=== PATIENT | male | born 1990 | race Caucasian/White ===

== ENCOUNTER 2024-01-02 19:44 | Emergency (ER) | payer BC, SELFPAY ==
--- NOTE | ~2024-01-02 | US_ITS ---
EXAMINATION: US venous doppler LE RT DATE: 01/02/2024 20:55 INDICATION: Right lower limb pain TECHNIQUE: Grayscale ultrasound images without and with compression and Doppler ultrasound images of the right lower extremity veins were obtained. COMPARISON: None. FINDINGS: The visualized portions of right common femoral vein, profunda (deep) femoral vein, femoral vein, pop liteal vein, peroneal trunk, posterior tibial veins, peroneal veins and greater saphenous vein outflo w are patent. IMPRESSION: 1. No deep venous thrombosis in the right lower limb. Reviewed, dictated and finalized at location A.
--- NOTE | ~2024-01-02 | XR_ITS ---
EXAMINATION: XR knee RT min 4V DATE: 01/02/2024 20:49 INDICATION: Right knee pain after walking a long distance TECHNIQUE: Anteroposterior, 2 oblique and crosstable lateral views of the right knee were obtained COMPARISON: None. FINDINGS: Alignment is normal. No fracture. Joint spaces appear normal on nonweightbearing imaging with no ost eophytosis. No joint effusion. Soft tissues are unremarkable. IMPRESSION: 1. Negative right knee radiographs. Reviewed, dictated and finalized at location A.
--- NOTE | 2024-01-02 19:46 | ED.GENADULT ---
HPI - General Adult General Chief complaint: Extremity Injury, Lower Stated complaint: right knee pain Time Seen by Provider: 01/02/24 19:46 Pt is 33-year-old male presents to the ER with complaints of intermittent R posterior thigh, knee, and calf pain. He walked on a treadmill for four hours on Saturday and his pain started on Saturday. Pt reports he has tried Tylenol and Ibuprofen at home without much relief. Pt denies RLE redness, swelling, or pain with stretching/touch. He says the pain is shooting when he straightens his leg and puts pressure on his R foot. Related Data Allergies Allergy/AdvReac Type Severity Reaction Status Date / Time No Known Allergies Allergy Unverified 06/24/18 16:19 Review of Systems Review of Systems: All systems reviewed & are unremarkable except as noted in HPI and below Exam Narrative: GENERAL: Well appearing, well-nourished, non-toxic, in no acute distress. RESPIRATORY: Airway patent, respirations nonlabored. Clear to auscultation bilaterally, no rales, rhonchi, wheezing. CARDIOVASCULAR: Regular rate and rhythm without murmurs, rubs, or gallops. Peripheral pulses 2+ and equal bilaterally. MUSCULOSKELETAL: Moves all extremities. Strength/ROM intact without gross deformities or TTP. No edema. No calf tenderness. SKIN: Warm, dry, normal color. No rashes. NEURO: A&O X3. Speech clear. Cranial nerves II-XII grossly intact. Steady gait. No ataxic movements. Course Vital Signs Vital signs: Vital Signs Pulse Rate 80 01/02/24 19:48 Respiratory Rate 14 01/02/24 19:48 Blood Pressure 133/87 01/02/24 19:48 Pulse Oximetry 96 01/02/24 19:48 Oxygen Delivery Room Air 01/02/24 19:48 Temperature 37.1 C 01/02/24 19:53 Pulse Rate 80 01/02/24 19:48 Respiratory Rate 14 01/02/24 19:48 Blood Pressure 133/87 01/02/24 19:48 Pulse Oximetry 96 01/02/24 19:48 Oxygen Delivery Room Air 01/02/24 19:48 Medical Decision Making MDM Narrative Medical decision making narrative: Pt is 33-year-old male presents to the ER with complaints of intermittent R posterior thigh, knee, and calf pain. He walked on a treadmill for four hours on Saturday and his pain started on Saturday. Pt reports he has tried Tylenol and Ibuprofen at home without much relief. He endorses the pain radiates along the backside of his R leg and worsens with straightening and pressure. In the ER, pt's exam is unremarkable. No swelling or redness noticed on RLE. Meniscus and ACL/MCL tests were negative. Pt was given Tylenol during his ER visit, which he said helped minimally with his pain relief. A ultrasound of pt's RLE was performed and was negative for a blood clot. An x-ray of pt's RLE was also performed and showed no deformities or abnormalities. Pt verbalized understanding of imaging results. Advised to go home with an JAZLYN wrap. Also advised to take Tylenol, Ibuprofen, and ice affected areas as needed. Pt should follow-up with PCP in five days if pain is not relieved with DC plan. Pt verbalized understanding of DC plan. Differential Diagnosis Differential Diagnosis: RLE blood clot, RLE muscle strain, RLE tendonitis Vital Signs Vital Signs: Vital Signs Pulse Rate 80 01/02/24 19:48 Respiratory Rate 14 01/02/24 19:48 Blood Pressure 133/87 01/02/24 19:48 Pulse Oximetry 96 01/02/24 19:48 Oxygen Delivery Room Air 01/02/24 19:48 Temperature 37.1 C 01/02/24 19:53 Pulse Rate 80 01/02/24 19:48 Respiratory Rate 14 01/02/24 19:48 Blood Pressure 133/87 01/02/24 19:48 Pulse Oximetry 96 01/02/24 19:48 Oxygen Delivery Room Air 01/02/24 19:48 Imaging Data Attestation: I personally reviewed and interpreted this imaging study as follows: My impression: Impressions Knee X-Ray 01/02/24 21:28 IMPRESSION: 1. Negative right knee radiographs. Venous Doppler Study 01/02/24 21:35 IMPRESSION: 1. No deep venous thrombosis in the right [place]
[2024-01-02 19:48] VITALS: BP 133/87; PULSE 80; RESP 14; O2SAT 96
[2024-01-02 19:53] VITALS: TEMP 37.1
[2024-01-02] MEDS: ACETAMINOPHEN 500 MG TABLET 1000 MG PO (20:37)
[2024-01-02 22:42] VITALS: BP 126/84; PULSE 74; RESP 16; O2SAT 99
== END 2024-01-02 22:43 | disposition home or self-care (01) ==
PROVIDERS: Emergency Provider Registered Nurse
DX: S86.911A Strain of unspecified muscle(s) and tendon(s) at lower leg level, right leg, initial encounter (principal); X50.3XXA Overexertion from repetitive movements, initial encounter
CPT/HCPCS: 73564; 93971; 99284; A9270

== ENCOUNTER 2024-01-16 11:24 | Emergency (ER) | payer BC, SELFPAY ==
[2024-01-16 11:40] VITALS: BP 111/90; PULSE 95; RESP 16; TEMP 35.9; O2SAT 99
--- NOTE | 2024-01-16 11:47 | ED.EXTPRO ---
HPI - Extremity Problem General Chief complaint: Extremity Problem,Nontraumatic Stated complaint: R LEG PAIN Time Seen by Provider: 01/16/24 11:47 Source: patient Mode of arrival: ambulatory Limitations: no limitations History of Present Illness HPI Narrative: 33-year-old male presents with complaint of pain to right leg for approximately 2 weeks. Patient states that he works from home . But 1 of the new walking treadmills to use while working at his desk. States he walked on treadmill the 1st day for 4 hours. Does not normally exercise. Woke up the next morning with severe pain to right lower extremity. Went to the ER and had x-rays completed was told no fractures. Also had ultrasound done to rule out blood clot. Ultrasound was normal. Was told to take ibuprofen for leg pain. Went to urgent care about 1 week ago. Was told pain was related to sciatica. Patient given muscle relaxant and steroids which she states helped only a little bit. Continues to have right leg pain. Difficult to get comfortable due to pain. Cannot stand for long period of time due to pain. Has appointment with her primary care physician next week. Is out of muscle relaxant. Patient ambulatory with steady gait, no limping. All systems reviewed and negative except as noted above. Related Data Home Medications Medication Instructions Recorded Confirmed acetaminophen 500 mg tablet 1,000 mg PO Q6H PRN 01/17/24 (Tylenol Extra Strength) cetirizine 10 mg tablet 10 mg PO DAILY PRN 01/17/24 multivitamin 1 tablet PO DAILY 01/17/24 Allergies Allergy/AdvReac Type Severity Reaction Status Date / Time No Known Allergies Allergy Verified 01/16/24 11:47 Review of Systems Review of Systems: CONSTITUTIONAL: Denies fever, chills, or sweats. EYES: Denies visual changes, redness, or discharge. ENT: Denies rhinorrhea, congestion, sore throat, or otalgia. CARDIOVASCULAR: Denies chest pain, palpitations, or edema. RESPIRATORY: Denies cough or dyspnea. GASTROINTESTINAL: Denies abdominal pain, nausea, vomiting, or diarrhea. GENITOURINARY: Denies dysuria or hematuria. SKIN: Denies rash or itching. MUSCULOSKELETAL: Denies back pain, joint pain, or myalgia. Reports right leg pain NEUROLOGIC: Denies headache, numbness, or weakness. PSYCHIATRIC: Denies anxiety or depression. All other systems reviewed are negative, except as documented in HPI. [facility] Past Medical History Medical History (Updated 01/17/24 @ 10:35 by Rusty Miller DO) Right sided sciatica Family History Family History (Updated 01/17/24 @ 09:41 by Sesar Corrales CMA) Grandparent Alcohol abuse Grandparent Hypertension Social History Social History (Updated 01/17/24 @ 09:38 by Sesar Corrales CMA) Smoking status: Never smoker Alcohol intake: never Substance use: never Substance use type: does not use Do You Feel Safe in your Home?: Yes Lack of Transportation: No Lack of Food: Never True Current Housing: I Have Housing Concerned About Future Housing: No Difficulty Paying Gas/Electric Bills: No Difficulty Paying for Meds: No Currently Unemployed: No Education: Bachelor's Degree Difficulty w/ Childcare or Family Care: No Comments At time of signature, agree with nursing past medical, surgical, social and family history. There is no relevant family history pertinent to the presenting complaint. Exam Narrative: GENERAL: This is a well-nourished, well-developed patient, in no apparent distress. HEAD: normocephalic, atraumatic. EYES: PERRL. Sclera clear/white. Vision is grossly intact. EARS: External ears normal, auditory canals clear and without drainage, TMs normal without perforation. Hearing grossly intact. NOSE: External nose normal with no obvious nasal discharge, nares without redness, no rhinorrhea. THROAT: Mucous membranes moist, posterior pharynx clear. NECK: Neck supple, non-tender without lymphadenopathy, masses or thyromegal
== END 2024-01-16 12:15 | disposition home or self-care (01) ==
PROVIDERS: Emergency Provider Nurse Practitioner Family
DX: M54.31 Sciatica, right side (principal); S86.911A Strain of unspecified muscle(s) and tendon(s) at lower leg level, right leg, initial encounter; X50.3XXA Overexertion from repetitive movements, initial encounter; Y93.A1 Activity, exercise machines primarily for cardiorespiratory conditioning
CPT/HCPCS: 99213; G0463

== ENCOUNTER 2024-03-10 12:10 | Outpatient (CLI) | payer BC, SELFPAY ==
--- NOTE | ~2024-03-10 | XR_ITS ---
XR knee RT min 4V 03/10/2024 12:40 Indication: Right knee pain Procedure: 4 views right knee Comparison: 01/02/2024 Findings: No fracture, subluxation or dislocation. No significant joint effusion. No foreign bodies. No joint space narrowing. Impression: 1: No significant bone or joint abnormality. Reviewed, dictated and finalized at location B. Impression: 1: No significant bone or joint abnormality.
== END 2024-03-10 12:11 | disposition home or self-care (01) ==
LOC: MICIMG 12:12
PROVIDERS: PCP Family Medicine; Visit Provider Family Medicine
DX: M25.561 Pain in right knee (principal)
CPT/HCPCS: 73564

== ENCOUNTER 2025-01-15 09:58 | Emergency (ER) | payer BC, SELFPAY ==
[2025-01-15 10:05] VITALS: BP 117/83; PULSE 92; RESP 18; TEMP 36.8; O2SAT 98
--- NOTE | 2025-01-15 10:21 | ED.URI ---
HPI - URI/Sore Throat General Chief Complaint: Upper Respiratory Infection Stated Complaint: FEVER/SORE THROAT Time Seen by Provider: 01/15/25 10:21 Source: patient Mode of arrival: ambulatory Limitations: no limitations History of Present Illness HPI Narrative: 34 yo M presents with c/o L sided sore throat, fatigue, low grade fever, nausea for 2 days. Vomited last night. has had diarrhea but not sure if related. No congestion or cough. Not eating due to pain with swallowing. Able to drink. All systems reviewed and negative except as noted above. Related Data Home Medications ?Medication ?Instructions ?Recorded ?Confirmed ?Last Taken ?Type No Home Medications 01/15/25 01/15/25 Unknown History Allergies Allergy/AdvReac Type Severity Reaction Status Date / Time No Known Allergies Allergy Verified 01/15/25 10:20 [facility] Past Medical History Medical History Right sided sciatica Family History Family History Grandparent Alcohol abuse Grandparent Hypertension Social History Social History Smoking status: Never smoker Alcohol intake: never Substance use: never Substance use type: does not use Do You Feel Safe in your Home?: Yes Lack of Transportation: No Lack of Food: Never True Current Housing: I Have Housing Concerned About Future Housing: No Difficulty Paying Gas/Electric Bills: No Difficulty Paying for Meds: No Currently Unemployed: No Education: Bachelor's Degree Difficulty w/ Childcare or Family Care: No Comments At time of signature, agree with nursing past medical, surgical, social and family history. There is no relevant family history pertinent to the presenting complaint. Exam Narrative: GENERAL: This is a well-nourished, well-developed patient, in no apparent distress. HEAD: normocephalic, atraumatic. EYES: PERRL. Sclera clear/white. Vision is grossly intact. EARS: External ears normal, auditory canals clear and without drainage, TMs normal without perforation. Hearing grossly intact. NOSE: External nose normal with no obvious nasal discharge, nares without redness, no rhinorrhea. THROAT: Mucous membranes moist,tonsil 3+ L side only with exudates. mild hot potato voice. swallowing oral secretions. NECK: Neck supple, non-tender without lymphadenopathy, masses or thyromegaly. CARDIOVASCULAR: Regular rate and rhythm without murmurs, gallops, or rubs. RESPIRATORY: Clear to auscultation. Breath sounds equal bilaterally. No wheezes, rales, or rhonchi. SKIN: warm, Dry, intact with no suspicious lesions or rash, good texture and turgor. NEURO: awake, alert, and oriented to person, place and time. There were no obvious focal neurologic abnormalities. EXTREMITIES: No joint tenderness, effusion, or edema noted. Course Course Level of Care: Express Care Visit Vital Signs Vital signs: Vital Signs Temperature 36.8 C 01/15/25 10:05 Pulse Rate 92 01/15/25 10:05 Respiratory Rate 18 01/15/25 10:05 Blood Pressure 117/83 01/15/25 10:05 Pulse Oximetry 98 01/15/25 10:05 Oxygen Delivery Room Air 01/15/25 10:05 Temperature 36.8 C 01/15/25 10:05 Pulse Rate 92 01/15/25 10:05 Respiratory Rate 18 01/15/25 10:05 Blood Pressure 117/83 01/15/25 10:05 Pulse Oximetry 98 01/15/25 10:05 Oxygen Delivery Room Air 01/15/25 10:05 reviewed Transfer Transfered to: [place] Transportation: Other (private vehicle) Transfer rationale: transferring to [facility] to rule out peritonsillar abscess Accepting physician: Yas SOLOMON MDM - URI/Sore Throat MDM Narrative Medical decision making narrative: L sided tonsil 3+, neg rapid strep. transferring to ER to rule out abscess Lab Data Labs: Lab Results 01/15/25 01/15/25 Range/Units 10:27 10:32 POC Influenza A Ag Pending POC Influenza B Ag Pending POC SARS CoV-2 Ag Pending POC Grp A Strep Screen Negative (Negative) Discharge Plan Discharge Clinical Impression: Abscess, peritonsillar Patient Disposition: Acute Care Hospital Condition: Stable Patient Language: Polish Prescriptions: No Action No Home Medications Follow-up/Referrals: Rusty Miller DO [Primary Care Provider, [facility]] Time of Disposition: 10:35
[2025-01-15 10:28] LABS: EDSTREPNEGPOS1 Negative (Negative)
[2025-01-15 10:35] LABS: EDCOVIDSCREEN Negative (Negative); EDINFLUASCREEN Negative (Negative); EDINFLUBSCREEN Negative (Negative)
== END 2025-01-15 10:40 | disposition short-term general hospital (02) ==
PROVIDERS: Emergency Provider Nurse Practitioner Family; PCP Family Medicine
DX: J36 Peritonsillar abscess (principal); Z20.822 Contact with and (suspected) exposure to COVID-19
CPT/HCPCS: 87081; 87426; 87804; 87880; 99213; G0463

== ENCOUNTER 2025-01-15 10:57 | Emergency (ER) | payer BC, SELFPAY ==
--- NOTE | ~2025-01-15 | CT_ITS ---
EXAMINATION: CT soft tissue neck w con DATE: 01/15/2025 12:03 INDICATION: Rule out [employer]ER [employer] TECHNIQUE: Computed tomography (CT) of the neck was performed with intravenous contrast. The dose-length product was 538.44 mGy-cm. COMPARISON: None FINDINGS: Extensive prominence of the left palatine tonsil which is favored to be secondary to an infectious process. There is a 12 x 7 x 11 mm loculated fluid collection in the palatine tonsil which is favored to represent a palatine tonsillar abscess. There is edema extending caudally from the left palatine to nsil into the left valleculae and left piriform sinus. Parotid glands, submandibular glands are unremarkable. Thyroid gland is unremarkable. Tongue is unremarkable. Dental hardware is present with surrounding artifact which slightly limits evaluation. Bone mineralization is within normal limits. Adenoid tissues unremarkable. No significant degenerative change in the cervical spine. Visualized cranial contents are unremarkable. There are a few nonenlarged and borderline enlarged lymph nodes scattered throughout the soft tissues of the neck. IMPRESSION: 1. Extensive prominence of the left palatine tonsil with surrounding edema which is favored to be secondary to an infectious process. Other etiologies are possible but are felt to be less likely. There is a 12 x 7 x 11 mm loculated fluid collection in the palatine tonsil which is favored to represent a palatine tonsillar abscess. Recommend follow-up to resolution. Reviewed, dictated and finalized at location Q. IMPRESSION: 1. Extensive prominence of the left palatine tonsil with surrounding edema whic h is favored to be secondary to an infectious process. Other etiologies are pos sible but are felt to be less likely. There is a 12 x 7 x 11 mm loculated fluid collection in the palatine tonsil which is favored to represent a palatine ton sillar abscess. Recommend follow-up to resolution.
--- OUTSIDE RECORDS SUMMARY | 2025-01-15 10:59 | XMS_ITS | Clinical Summary ---
Author Organization [address] Address [address] [place] [id number] Care Team Providers Care Performance Improvement Analyst Name Role Phone Unknown, Notinfile Primary Care Provider Unavail able Allergies No known active allergies Medications predniSONE (DELTASONE) 10 mg tabletIndication s:Acute right-sided low back pain with sciatica, sciatica laterality unspecified Take 3 tabs days 1 & 2, 2 tabs days 3 & 4, 1 tab days 5-7. 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 Gender Identity Male 01/10/2024 12:27 PM CDT Sexual Orientation Not on file Obstetrics History Last Filed Vital Signs Vital Sign Reading Time Taken Comments Blood Pressure 109/62 01/10/2024 2:05 PM CDT Pulse 68 01/10/2024 2:05 PM CDT Temperature 36.7 C (98 F) 01/10/2024 2:05 PM CDT Respiratory Rate 14 01/10/2024 2:05 PM CDT Oxygen Saturation 95% 01/10/2024 2:05 PM CDT Inhaled Oxygen Concentration - - Weight 102.1 kg (225 lb) 01/10/2024 2:05 PM CDT Height 177.8 cm (5' 10) 01/10/2024 2:05 PM CDT Body Mass Index 32.28 01/10/2024 2:05 PM CDT Plan of Treatment Health Maintenance Due Date Last Done Comments Depression Screening 1991 Hepatitis C Screening 1991 DTaP/Tdap/Td Vaccine (1 - Tdap) 2002 Varicella Vaccines (1 of 2 - 13+ 2-dose series) 01/21/2004 Hepatitis B Screening 2009 Regular Well Visit/Exam 18-64 2009 HPV Vaccines (1 - 3-dose SCDM series) 2018 Covid-19 Vaccine ( season) 2024 03/04/2022, 04/06/2021, 09/09/2020, Additional history exists Influenza Vaccine (#1) 2025 03/04/2022, 2020 Pneumococcal vaccine <65 Aged Out No longer eligible based on patient's age to complete this topic Insurance [employer] Care Teams Performance Improvement Analyst Relationship Specialty Start Date End Date Unknown, Notinfile PCP - General 10/10/22
[2025-01-15 11:22] VITALS: BP 120/78; PULSE 79; RESP 18; TEMP 36.7; O2SAT 100
[2025-01-15 11:23] VITALS: BP 120/78; O2SAT 100
--- OUTSIDE RECORDS SUMMARY | 2025-01-15 11:25 | XMS_ITS | Clinical Summary ---
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
[2025-01-15 11:29] LABS: Hematocrit 43.5 % (42.0-52.0); Hemoglobin 14.9 g/dL (14.0-18.0); Immature Granulocyte Percent A 0.3 % (0-0.5); Lymphocytes Absolute Auto 1.10 K/mm3 (0.9-3.2); Mean Corpuscular HGB Conc 34.3 g/dl (32-36); Mean Corpuscular Hemoglobin 29.2 pg (26-34); Mean Corpuscular Volume 85.1 fl (80-100); Nucleated Red Blood Cells Absolute Auto 0.000 K/mm3 (0.0-0.012); Nucleated Red Blood Cells Perc 0.0 % (0.0-0.2); Platelet Count Result 176 k/mm3 (150-375); Red Blood Count 5.11 M/mm3 (4.6-6.20); White Blood Count 9.3 K/mm3 (4.5-10.0)
[2025-01-15 11:43] LABS: Alanine Aminotransferase 25 U/L (6-50); Albumin Level 4.5 g/dL (3.5-5.1); Alkaline Phosphatase 66 U/L (38-126); Anion Gap 11 mmol/L (4-12); Aspartate Amino Transferase 35 U/L (17-59); Bilirubin,Total 0.7 mg/dL (0.2-1.3); Blood Urea Nitrogen 11 mg/dL (9-20); Calcium 9.5 mg/dL (8.4-10.2); Carbon Dioxide 28 mmol/L (22-30); Chloride 100 mmol/L (98-107); Estimated Glomerular Filt Rate > 60; Glucose 103 mg/dL (65-110); Potassium 4.2 mmol/L (3.4-5.0); Sodium 139 mmol/L (137-145); Total Protein 8.2 g/dL (6.3-8.2)
[2025-01-15 12:14] LABS: Negative Monotest Control Negative (Negative); Positive Monotest Control Positive (Positive)
[2025-01-15] MEDS: ACETAMINOPHEN 500 MG TABLET 1000 MG PO (12:44)
[2025-01-15] MEDS: dexAMETHasone SOD PHOS INJ 10 MG/ML 1 ML VIAL IV PUSH (12:47)
[2025-01-15] MEDS: AMPICILLIN SODIUM/SULBACTAM 3 GM in SODIUM CHLORIDE 0.9% IV 100 ML 200 ML IVPB (12:47)
--- NOTE | 2025-01-15 12:49 | ED_ITS ---
HPI - General Adult General Chief complaint: Unspecified Stated complaint: left tonsil abscess Time Seen by Provider: 01/15/25 11:12 Source: patient Mode of arrival: ambulatory Limitations: no limitations History of Present Illness HPI narrative: Patient is a 34-year-old male who presents the ED with report of a sore throat. Patient reports over the past 2 days, he has had persistent sore throat, worse on the left side. He reports painful swallowing, denies difficulty swallowing. Denies difficulty breathing. Does report fever up to 101 degree F at home. Has been taking Tylenol. Went to an urgent care this morning and tested negative for COVID, flu, strep. Was sent here to rule out a peritonsillar abscess. Related Data Allergies Allergy/AdvReac Type Severity Reaction Status Date / Time No Known Allergies Allergy Verified 01/15/25 10:20 Review of Systems 2 Review of Systems: All systems reviewed & are unremarkable except as noted in HPI. All systems reviewed & are unremarkable except as noted in HPI and below PMFSH Past Medical History Medical History Right sided sciatica Family History Family History Grandparent Alcohol abuse Grandparent Hypertension Social History Social History Smoking status: Never smoker Alcohol intake: never Substance use: never Substance use type: does not use Do You Feel Safe in your Home?: Yes Lack of Transportation: No Lack of Food: Never True Current Housing: I Have Housing Concerned About Future Housing: No Difficulty Paying Gas/Electric Bills: No Difficulty Paying for Meds: No Currently Unemployed: No Education: Bachelor's Degree Difficulty w/ Childcare or Family Care: No Exam 2 Narrative: GENERAL: Well appearing, well-nourished, non-toxic, in no acute distress. HEAD: Normocephalic, atraumatic. ENT: MMs moist. Mild posterior pharynx erythema, trace exudates. Very mild fullness of left soft palate/peritonsillar region. Uvula appears midline, no deviation. No stridor or trismus. Maintaining secretions. RESPIRATORY: Airway patent, respirations nonlabored. Clear to auscultation bilaterally, no rales, rhonchi, wheezing. CARDIOVASCULAR: Regular rate and rhythm MUSCULOSKELETAL: Moves all extremities. No gross deformities. SKIN: Warm, dry, normal color. NEURO: A&O X3. Speech clear. PSYCHIATRIC: Appropriate mood and affect. Normal interaction. Course Vital Signs Vital signs: Vital Signs Temperature 98.0 F 01/15/25 11:22 Pulse Rate 79 01/15/25 11:22 Respiratory Rate 18 01/15/25 11:22 Blood Pressure 120/78 01/15/25 11:22 Pulse Oximetry 100 01/15/25 11:22 Oxygen Delivery Room Air 01/15/25 11:22 Temperature 98.0 F 01/15/25 11:22 Pulse Rate 74 01/15/25 14:04 Respiratory Rate 16 01/15/25 14:04 Blood Pressure 128/84 01/15/25 14:04 Pulse Oximetry 98 01/15/25 14:04 Oxygen Delivery Room Air 01/15/25 11:22 Medical Decision Making MDM Narrative Medical decision making narrative: Patient presented to ED with left-sided sore throat for the past few days. Went to an urgent care and was referred to the ED for further evaluation to rule out a peritonsillar abscess. Vital signs are stable upon arrival. Patient is in no acute distress. No evidence of airway compromise or respiratory distress. Tested negative for strep, influenza, RSV at urgent care. Laboratory studies without leukocytosis or anemia. Stable electrolytes. [place] testing negative. CT soft tissue neck: IMPRESSION: 1. Extensive prominence of the left palatine tonsil with surrounding edema which is favored to be secondary to an infectious process. Other etiologies are possible but are felt to be less likely. There is a 12 x 7 x 11 mm loculated fluid collection in the palatine tonsil which is favored to represent a palatine tonsillar abscess. Recommend follow-up to resolution. Patient given decadron and dose of unasyn in the ED. Will discuss with ENT. Discussed case with Dr. Stephenson, ENT, advised can start patient on Augmentin x 10 days, Medrol Dosepak given small size of abscess currently. If patient prefers to have abscess I&D today, can be seen in the office today. Otherwise if symptoms worsen whatsoever, return to the ED over the weekend and Dr. Sachin is on-call. Patient is in agreement this plan. He feels comfortable going home on oral antibiotics and steroids. Discussed strict return precautions. Patient voiced understanding. Discharged in stable condition. Medical Records Medical records reviewed: Yes I reviewed the external patient's medical records. Vital Signs Vital Signs: Vital Signs Temperature 98.0 F 01/15/25 11:22 Pulse Rate 79 01/15/25 11:22 Respiratory Rate 18 01/15/25 11:22 Blood Pressure 120/78 01/15/25 11:22 Pulse Oximetry 100 01/15/25 11:22 Oxygen Delivery Room Air 01/15/25 11:22 Temperature 98.0 F 01/15/25 11:22 Pulse Rate 74 01/15/25 14:04 Respiratory Rate 16 01/15/25 14:04 Blood Pressure 128/84 01/15/25 14:04 Pulse Oximetry 98 01/15/25 14:04 Oxygen Delivery Room Air 01/15/25 11:22 Lab Data Lab results reviewed: Yes I reviewed the patient's lab results. 01/15/25 11:20 01/15/25 11:20 Labs: Lab Results 01/15/25 Range/Units 11:20 WBC 9.3 (4.5-10.0) K/mm3 RBC 5.11 (4.6-6.20) M/mm3 Hgb 14.9 (14.0-18.0) g/dL Hct 43.5 (42.0-52.0) % MCV 85.1 (80-100) fl MCH 29.2 (26-34) pg MCHC 34.3 (32-36) g/dl RDW 11.9 (11.5-14.5) % Plt Count 176 (150-375) k/mm3 MPV 9.1 (7.4-10.4) fl Immature Gran % (Auto) 0.3 (0-0.5) % Neut % (Auto) 78.1 H (45.5-73.1) % Lymph % (Auto) 11.9 L (18.3-44.2) % [place] % (Auto) 9.3 H (2.6-8.5) % Eos % (Auto) 0.1 (0-4.4) % Baso % (Auto) 0.3 (0.2-1.2) % Lymph # (Auto) 1.10 (0.9-3.2) K/mm3 [place] # (Auto) 0.9 H (0.1-0.6) K/mm3 Eos # (Auto) 0.0 (0-0.3) K/mm3 Baso # (Auto) 0.0 (0.0-0.1) K/mm3 Abs Immat Gran (auto) 0.03 (0.00-0.031) K/mm3 Absolute Neuts (auto) 7.3 H (1.3-6.7) K/mm3 Absolute Nucleated RBC 0.000 (0.0-0.012) K/mm3 Nucleated RBC % 0.0 (0.0-0.2) % Sodium 139 (137-145) mmol/L Potassium 4.2 (3.4-5.0) mmol/L Chloride 100 (98-107) mmol/L Carbon Dioxide 28 (22-30) mmol/L Anion Gap 11 (4-12) mmol/L BUN 11 (9-20) mg/dL Creatinine 0.94 (0.7-1.3) mg/dL Estim Creat Clear Calc Not Reportable Estimated GFR > 60 (59 - ) Glucose 103 (65-110) mg/dL Calcium 9.5 (8.4-10.2) mg/dL Total Bilirubin 0.7 (0.2-1.3) mg/dL AST 35 (17-59) U/L ALT 25 (6-50) U/L Alkaline Phosphatase 66 (38-126) U/L Total Protein 8.2 (6.3-8.2) g/dL Albumin 4.5 (3.5-5.1) g/dL Monoscreen Negative (Negative) Imaging Data Attestation: I personally reviewed and interpreted this imaging study as follows: Radiologist's impression: ITS Impressions Soft Tissue Neck CT 01/15/25 12:12 IMPRESSION: 1. Extensive prominence of the left palatine tonsil with surrounding edema which is favored to be secondary to an infectious process. Other etiologies are possible but are felt to be less likely. There is a 12 x 7 x 11 mm loculated fluid collection in the palatine tonsil which is favored to represent a palatine tonsillar abscess. Recommend follow-up to resolution. Discharge Plan Discharge Clinical Impression: Peritonsillar abscess Patient Disposition: Home Condition: Stable Instructions: Antibiotic Form, Peritonsillar Abscess (ED) Additional Instructions: Take steroids as prescribed. Take antibiotics as prescribed. It is important you finish both courses. Stay well hydrated. Continue Tylenol/ibuprofen as needed for pain/fevers. If your symptoms become worse at all, or you develop difficulty breathing/swallowing, unable to keep down food or drink, return to the ED for further evaluation by ENT. You may follow-up with ENT in office if needed. Call office if needed. Patient Language: Monegasque Prescriptions: New methylprednisolone [Medrol (Gutierrez)] 4 mg tablets,dose pack See Rx Instructions PO .COMPLEX Qty: 21 0RF Rx Instructions: orally per package directions amoxicillin-pot clavulanate 875-125 mg tablet 1 tablet PO Q12H 10 Days Qty: 20 0RF Follow-up/Referrals: Jc Stephenson MD [Physician, Ear, Nose, Throat] Referral Note: ENT Rusty Miller DO [Primary Care Provider, [facility]] Time of Disposition: 13:48
[2025-01-15 14:04] VITALS: BP 128/84; PULSE 74; RESP 16; O2SAT 98
== END 2025-01-15 14:05 | disposition home or self-care (01) ==
PROVIDERS: Emergency Provider Physician Assistant; PCP Family Medicine
DX: J36 Peritonsillar abscess (principal)
CPT/HCPCS: 36415; 70491; 80053; 85025; 86308; 87081; 87426; 87804; 87880; 96365; 96375; 99284; A9270; J0295; J1100; Q9967